=== PATIENT | male | born 1965 | race Caucasian/White ===

== ENCOUNTER 2019-08-19 02:01 | Emergency (ER) | payer SELFPAY ==
[~2019-08-19] VITALS: Ht 170.2 cm; Wt 68.0 kg
[2019-08-19 02:30] VITALS: BP 140/80
--- NOTE | 2019-08-19 02:30 | NUR ---
ED Nurse Note: Patient brought in by ambulance d/t ETOH intoxication and was found unconscious on the street. Patient awake, alert, and oriented to person and place, ambulatory but with unsteady gait. Patient given urinal and fall precautions implemented. No complaints of pain. Patient stable upon assessment.
--- NOTE | 2019-08-19 02:44 | NUR ---
ED Nurse Note: Offered urinal to patient several times d/t unsteady gait, pt refused and insisted on using restroom. Patient assisted to restroom in stable condition.
--- NOTE | 2019-08-19 02:58 | NUR ---
ED Nurse Note: Patient assisted back to room and bed in stable condition, fall precautions implemented.
--- NOTE | 2019-08-19 04:20 | Emergency Room Report ---
History of Present Illness General Chief Complaint: Alcohol Intoxication Source: Patient, EMS Present Illness HPI Patient was brought in by paramedics the [place] at a bar had apparently called paramedics Patient had been drinking fairly heavily upon seeing the patient he reports that he just wants to sleep Denies any focal weakness denies any headache he reports that he recently broke up with his girlfriend and wants to sleep Denies any back or flank pain denies any homicidal or suicidal thoughts Denies any nausea COVID-19 risk:Travel to affect: No Allergies: Coded Allergies: No Known Allergies (Unverified , 08/19/19) Patient History Past Medical History: see triage record Reviewed Nursing Documentation: PMH: Agreed; PSxH: Agreed Nursing Documentation-PMH Past Medical History: No Stated History Review of Systems All Other Systems: negative except mentioned in HPI Physical Exam Vital Signs Date Time Temp Pulse Resp B/P (MAP) Pulse Ox O2 Delivery O2 Flow Rate FiO2 08/19/19 02:04 98.2 82 16 144/82 (102) 99 Room Air Sp02 EP Interpretation: reviewed, normal General Appearance: no apparent distress Head: normocephalic, atraumatic Eyes: bilateral eye PERRL, bilateral eye EOMI ENT: hearing grossly normal, EOM grossly intact Neck: supple Respiratory: lungs clear, no respiratory distress, no retraction Cardiovascular #1: regular rate, rhythm Gastrointestinal: non tender, soft Musculoskeletal: normal inspection Neurologic: alert Psychiatric: normal inspection Skin: no rash Lymphatic: no adenopathy Medical Decision Making Diagnostic Impression: Primary Impression: Alcohol abuse ER Course Patient does report heavy alcohol intake No obvious neurological deficits are noted Patient does appear inebriated Refusing further work-up at this time Patient does not have any nausea or vomiting therefore is allowed to rest At approximately 445 the patient has now awakened ambulatory out of his room Reports that he feels significantly better and would like to go home Patient also requesting several times to be able to smoke Denies any headache denies any neck pain patient is clinically sober and ambulating without any deficit We encouraged him to Have us contact a taxicab for him however patient reports that he lives up the street and does not want to wait any further Patient did contact [employer] And was picked up by the [employer] driver Last Vital Signs Date Time Temp Pulse Resp B/P (MAP) Pulse Ox O2 Delivery O2 Flow Rate FiO2 3/16/20 02:30 98.2 80 16 140/80 99 Room Air Status: improved Disposition: HOME, SELF-CARE Condition: Improved Referrals: NOT CHOSEN IPA/MD,REFERRING (PCP) Additional Instructions: Patient is provided with the discharge instructions notified to follow up with primary doctor in the next 2-3 days otherwise return to the er with any worsening symptoms. Please note that this report is being documented using [employer]AG[employer] technology. This can lead to erroneous entry secondary to incorrect interpretation by the dictating instrument. Pardeep Samson DO Aug 19, 2019 04:20
[2019-08-19 04:23] VITALS: BP 138/79
--- NOTE | 2019-08-19 04:23 | NUR ---
ED Nurse Note: Patient resting in bed, no acute distress noted.
[2019-08-19 05:02] VITALS: BP 135/75
--- NOTE | 2019-08-19 05:02 | NUR ---
ER DISCHARGE NOTE: Patient is cleared to be discharged per ERMD, pt is aox4, on room air, with stable vital signs. pt was given dc instructions, pt was able to verbalize understanding, pt id band removed. pt is able to ambulate with steady gait. pt took all belongings. pt stable upon discharge.
== END 2019-08-19 05:02 | disposition home or self-care (01) ==
LOC: EDBD 02:01 → EMR 02:09
DX: F10.10 Alcohol abuse, uncomplicated (principal)
CPT/HCPCS: 99281